=== PATIENT | female | born 1980 | race Caucasian/White ===

== ENCOUNTER 2024-01-01 15:11 | Outpatient (CLI) | payer OTHER, SELFPAY ==
--- NOTE | ~2024-01-01 | CT_ITS ---
EXAMINATION:CT diagnostic chest wo con DATE: 01/01/2024 15:32 INDICATION: Hemoptysis. TECHNIQUE: Computed tomography (CT) of the chest was performed without intravenous contrast. Automate d exposure control and iterative reconstruction technique were employed. The dose-length product (DLP ) was 216.58 mGy-cm. COMPARISON: None. FINDINGS: There are mild airspace opacities with volume loss and architectural distortion involving t he upper lobes, right middle lobe, and right lower lobe. There is a 10 mm endobronchial mass in bronc hus intermedius. No bronchiectasis or honeycombing. No pleural effusion. The heart size is normal. No pericardial effusion. There are no pathologically enlarged lymph nodes. There is mild thoracic spond ylosis. IMPRESSION: 1. 10 mm endobronchial mass in bronchus intermedius suspicious for primary bronchogenic carcinoma. Br onchoscopy is recommended. 2. Mild chronic lung disease. Reviewed, dictated and finalized at location E. IMPRESSION: 1. 10 mm endobronchial mass in bronchus intermedius suspicious for primary bron chogenic carcinoma. Bronchoscopy is recommended. 2. Mild chronic lung disease.
== END 2024-01-01 15:12 ==
PROVIDERS: PCP Physician Assistant; Visit Provider Physician Assistant
DX: R04.2 Hemoptysis (principal); J98.4 Other disorders of lung
CPT/HCPCS: 71250